=== PATIENT | male | born 1980 | race Caucasian/White ===

== ENCOUNTER 2020-12-10 03:44 | Emergency (ER) | payer OTHER ==
[2020-12-10 04:27] VITALS: BMI 29.2
[2020-12-10 06:41] VITALS: BP 121/93; PULSE 79; TEMP 98
== END 2020-12-10 07:46 | disposition home or self-care (01) ==
LOC: JER 03:44
DX: R07.0 Pain in throat (principal)
CPT/HCPCS: 87880; 93005; 93010; 99283-25